=== PATIENT | male | born 1940 | race Caucasian/White ===

== ENCOUNTER 2016-08-20 13:22 | Emergency (ER) | payer MEDICARE ==
--- NOTE | ~2016-08-20 | CR72 ---
[facility] A Service of [facility] & [facility] RADIOLOGY TEXT RESULTS PATIENT: ISRA AGGARWAL LOCATION: [facility] : 44 UNIT #: [id number] AGE: [address]: Abisai Hines MD SEX: M ORDER DR: [id number] [facility] [address] [place], [place] [address] [id number] MR#: [id number] Acc #: [id number] NAME: ISRA AGGARWAL : 1940 SEX: M STUDY DATE/TIME: 08/20/2016 12:44 UNIT: [facility] ROOM: STUDY DESCRIPTION: CR Chest Single View Portable Attending Physician: Abisai Hines M.D. Referring Physician: Mau Looney M.D. Ordering Physician: Alexis Gonsalves M.D. Primary Care Physician: Mau Looney M.D. MEDICAL IMAGING REPORT This report is preliminary unless electronic signature is present EXAM Portable chest x-ray 08/20/2016 HISTORY Left arm pain, tightness in chest. Duration 3 days. Worse today. FINDINGS AP radiograph of chest is presented. No comparisons. [id number] levoscoliosis of the mid to lower thoracic spine. Old healed left sixth rib fracture posterolaterally. No acute bony abnormality suggested. Mild cardiac enlargement. Lungs are well inflated. There is no evidence of acute pulmonary disease, pleural effusion, or pneumothorax. Calcified granulomata bilaterally. No suspicious nodule. Dictated by... James Stephen M.D. THIS IS AN ELECTRONICALLY VERIFIED REPORT James Stephen M.D. at 08/24/2016 10:29 AM Britt TD: 08/20/2016 14:14 JOB #: [id number] MEDICAL IMAGING REPORT Page 1 of 1 COPY
--- NOTE | ~2016-08-20 | EKG ---
PATIENT: ISRA AGGARWAL UNIT #: [id number] Ventricular Rate: 54 BPM Atrial Rate: 54 BPM P-R Interval: 164 ms QRS Duration: 90 ms Q-T Interval: 438 ms QTC Calculation(Bezet): 415 ms P Jones: 30 degrees Calculated R Jones: -12 degrees Diagnosis Line: Sinus bradycardia Diagnosis Line: Voltage criteria for left ventricular hypertrophy Diagnosis Line: Abnormal ECG Diagnosis Line: No previous ECGs available Diagnosis Line: Confirmed by LAUREN GUPTA MD ([id number]) on Diagnosis Line: 08/22/2016 8:42:58 AM INTERPRETING MD: SHELLIE
[2016-08-20 13:06] LABS: BASOPHIL# 0.1 X10e3 (0-0.3); BASOPHIL% 0.7 % (0-2.5); EOSINOPHIL# 0.3 X10e3 (0-0.7); HEMATOCRIT 45.3 % (38.0-50.0); HEMOGLOBIN 15.4 gm/dL (13.0-16.0); LYMPHOCYTE# 2.6 X10e3 (1.0-3.5); LYMPHOCYTE% 27.7 % (17.0-45.0); MEAN CELL VOLUME 88.2 FL (83-96); MEAN CORPUSCULAR HEMOGLOBIN 29.9 PG (28-34); MEAN CORPUSCULAR HGB CONC 33.9 g/dL (30-36); MONOCYTE# 0.8 X10e3 (0-1.0); MONOCYTE% 8.1 % (3.0-12.0); NEUTROPHIL# 5.8 X10e3 (1.5-7.1); NEUTROPHIL% 60.5 % (40-75); PLATELET COUNT 255 X10e3 (140-420); RED BLOOD COUNT 5.14 X10e (3.90-5.60); RED CELL DISTRIBUTION WIDTH 12.7 % (11.0-15.5); WHITE BLOOD COUNT 9.5 X10e3 (4.0-10.5)
[2016-08-20 13:07] LABS: DIFF IND NO
[2016-08-20 13:11] LABS: POC - CKMB 1.8 ng/mL (0.0-7.9); POC - TROPONIN <0.05 ng/mL (<=0.05)
[2016-08-20 13:19] LABS: PARTIAL THROMBOPLASTIN TIME 27.3 SECONDS (23.5-31.3); PROTHROMBIN TIME (PATIENT) 10.4 SECONDS (9.6-11.5)
[2016-08-20 13:33] LABS: ALBUMIN SERUM 4.3 g/dL (3.5-5.0); BILIRUBIN, DIRECT 0.1 mg/dL (0.0-0.2); BILIRUBIN,INDIRECT 1.5 mg/dL (0.0-0.9); BILIRUBIN,TOTAL 1.6 mg/dL (0.2-2.0); BUN/CREATININE RATIO 18.88; CALCIUM SERUM 9.1 mg/dL (8.4-10.2); CREATININE SERUM 0.9 mg/dL (0.6-1.4); GLOM FILT RATE Estimated 84.4 mL/min (>60); POTASSIUM 3.8 mmol/L (3.5-5.1); PROTEIN TOTAL SERUM 7.2 g/dL (6.0-8.3)
[2016-08-20 14:44] LABS: POC - CKMB 1.9 ng/mL (0.0-7.9)
[2016-08-20 14:45] LABS: POC - TROPONIN <0.05 ng/mL (<=0.05)
== END 2016-08-20 15:30 | disposition home or self-care (01) ==
LOC: CED 13:22
PROVIDERS: Emergency Medicine
DX: M79.622 Pain in left upper arm (principal); M79.632 Pain in left forearm; Z98.890 Other specified postprocedural states; Z90.49 Acquired absence of other specified parts of digestive tract; Z88.2 Allergy status to sulfonamides; Z88.5 Allergy status to narcotic agent; Z88.8 Allergy status to other drugs, medicaments and biological substances
CPT/HCPCS: 36415; 71010; 80048; 80076; 82553; 84484; 85025; 85610; 85730; 93005; 99283